=== PATIENT | female | born 1995 | race Caucasian/White ===

== ENCOUNTER 2021-08-19 13:45 | Inpatient (IN) | payer OTHER, SELFPAY ==
[2021-08-19] VITALS (124 sets, daily range): BP systolic 99–140; BP diastolic 46–96; PULSE 65–236; RESP 16–18; TEMP 36.4–36.8; O2SAT 95–100; BMI 31.4
--- NOTE | 2021-08-19 14:34 | PM.IMHP ---
H&P: HPI History of Present Illness Date/Time: 08/19/21 14:34 Chief Complaint: Intrauterine at term Narrative: 26 yo G1 at 39w2d who presents for elective IOL. Her has been uncomplicated thus far. She denies any regular contractions, vaginal bleeding or leakage of fluid. She Review of Systems Cardiovascular: Cardiovascular: Denies chest pain, Denies leg edema, Denies palpitations, Denies dyspnea and Denies dyspnea on exertion Respiratory: Respiratory: Denies cough, Denies dyspnea and Denies dyspnea on exertion Gastrointestinal: Gastrointestinal: Denies abdominal pain, Denies constipation, Denies diarrhea, Denies nausea and Denies vomiting Genitourinary: Genitourinary: Denies hematuria, Denies urinary frequency, Denies dysuria, Denies pelvic pain, Denies urinary incontinence and Denies vaginal discharge Neurologic: Reports system reviewed and no additional complaints, except as documented Psychiatric: Psychiatric: Reports no additional psychiatric complaints Endocrine: Endocrine: Denies palpitations [facility] Family History Family History (Updated 07/26/21 @ 14:42 by Jillian Roger RN) Mother Hypertension Migraines Father Atrial fibrillation Hypothyroidism Social History Social History Substance use: never Spiritual care concerns: No Meds Home Medications and Allergies Home Medications Medication Instructions Recorded Confirmed Type PNV cmb#95-ferrous fumarate-FA 1 tablet PO DAILY 07/26/21 08/19/21 History [] albuterol (refill) 90 mcg INHALATION Q6H PRN 07/26/21 08/19/21 History Allergies Allergy/AdvReac Type Severity Reaction Status Date / Time No Known Allergies Allergy Verified 07/26/21 14:36 Vital Signs Vital Signs - 24 hr 08/19/21 14:24 08/19/21 14:31 Pulse Rate 85 87 Blood Pressure 126/85 134/89 Exam Const: General: no acute distress Eyes: EOM: EOMs intact bilaterally Neck: Neck: supple Thyroid: thyroid normal Chest: Breast/axilla inspection: normal inspection of the breasts Breast/axilla palpation: normal palpation of the breasts, normal palpation of the axillae and no axillary lymphadenopathy Resp: Effort & Inspection: normal respiratory effort Auscultation: clear to auscultation bilaterally Cardio: Rate: regular rate Rhythm: regular rhythm GI: Inspection: non-distended and other (Gravid) GI Palp: Yes Soft to palpation, No Tenderness to palpation present (GI) and No Guarding due to palpation present (GI) Auscultation: normal bowel sounds : Speculum Exam - Vagina: No vaginal bleeding OB/external & speculum: external exam normal; No vaginal bleeding Skin: General skin exam: normal color and no rashes or lesions noted Neuro: Cognition (Neuro): normal cognition Speech: normal speech Extrem: General: normal to inspection Psych: Mental Status: mental status grossly normal Affect: normal affect Assessment and Plan Assessment and plan (1) Supervision of high risk , unspecified, third trimester: Code(s): O09.93 - Supervision of high risk , unspecified, third trimester Status: Acute Assessment and Plan: 26 yo G1 at 39w2d admit to L&d routine admission orders labs wnl Rh+ GBS +, will start abx in labor FHT cat 1 cvx /-2 plan for cervical gallego bulb and pitocin IOL continuous EFM (2) Asthma during : Code(s): O99.519 - Diseases of the respiratory system complicating , unspecified trimester; J45.909 - Unspecified asthma, uncomplicated Status: Acute Assessment and Plan: stable (3) COVID-19 affecting in first trimester: Code(s): O98.511 - Other viral diseases complicating , first trimester; U07.1 - COVID-19 Status: Acute Assessment and Plan: +COVID on 02/22/21
[2021-08-19 14:36] LABS: Basophils Percent Auto 0.2 % (0.2-1.2); Eosinophils Absolute Auto 0.1 K/mm3 (0-0.3); Eosinophils Percent Auto 0.5 % (0-4.4); Hematocrit 38.7 % (37.0-47.0); Hemoglobin 13.1 g/dL (12.0-15.0); Immature Granulocyte Absolute 0.08 K/mm3 (0.00-0.031); Immature Granulocyte Percent A 0.6 % (0-0.5); Lymphocytes Absolute Auto 1.62 K/mm3 (0.9-3.2); Lymphocytes Percent Auto 12.3 % (18.3-44.2); Mean Corpuscular HGB Conc 33.9 g/dl (32-36); Mean Corpuscular Hemoglobin 31.8 pg (26-34); Mean Corpuscular Volume 93.9 fl (80-100); Mean Platelet Volume 11.5 fl (7.4-10.4); Monocytes Absolute Auto 0.7 K/mm3 (0.1-0.6); Monocytes Percent Auto 5.6 % (2.6-8.5); Neutrophils Absolute Auto 10.6 K/mm3 (1.3-6.7); Neutrophils Percent Auto 80.8 % (45.5-73.1); Platelet Count Result 180 k/mm3 (150-375); Red Blood Count 4.12 M/mm3 (4.2-5.4); Red Cell Distribution Width 12.9 % (11.5-14.5); White Blood Count 13.2 K/mm3 (4.5-10.0)
[2021-08-19] MEDS: LACTATED RINGERS 1,000 ML 125 ML IV CONT (14:36)
[2021-08-19] MEDS: AMPICILLIN 2 GM/NS 100 ML 2 GM/100 ML BAG IVPB (14:38)
[2021-08-19] MEDS: OXYTOCIN 30 UNITS/NS 500 ML 30 UNITS/500 ML BAG IV CONT (14:42)
--- NOTE | 2021-08-19 15:42 | LDADM ---
This patient, Petra Tam, was admitted to Labor/Delivery/Recovery 106 on 08/19/21 at 13:45. Plans for labor, pain management and were discussed with patient. Patient/family oriented to hospital policies and general routines including ID bracelet, bed and alarms, visiting hours, pain management, procedures, bathroom and other care routines, personal items, smoking policy, room service/diet and guest tray routines, infant security routines, and visiting hours. Patient/Family are encouraged to report perceived risks to care and to ask questions if they do not understand what they are told or what they should do. See OBIX for further documentation.
[2021-08-19] MEDS: LACTATED RINGERS 1,000 ML 999 ML IV CONT (16:50)
--- NOTE | 2021-08-19 17:08 | WPDANESEPPF ---
Anes - Initial Pre Proc Eval Procedure: labor epidural Date/Time: 08/19/21 17:08 Surgeon: Jet Rivas MD Pre Op Diagnosis: labor pain Pre Op Diagnosis: Induction of Labor Patient Data Age: 26 Gender: F Height: 1.65 m Weight: 85.5 kg Last Vital Signs Temp 36.4 C L 08/19/21 16:28 Pulse 86 08/19/21 17:06 BP 133/82 08/19/21 17:06 Pulse Ox 100 08/19/21 17:06 Allergies Allergy/AdvReac Type Severity Reaction Status Date / Time No Known Allergies Allergy Verified 07/26/21 14:36 Home Medications Medication Instructions Recorded Confirmed Type PNV cmb#95-ferrous fumarate-FA 1 tablet PO DAILY 07/26/21 08/19/21 History [] albuterol (refill) 90 mcg INHALATION Q6H PRN 07/26/21 08/19/21 History Laboratory Tests 08/19/21 08/19/21 08/19/21 14:22 14:22 14:22 WBC 13.2 K/mm3 H K/mm3 (4.5-10.0) RBC 4.12 M/mm3 L M/mm3 (4.2-5.4) Hgb 13.1 g/dL g/dL (12.0-15.0) Hct 38.7 % % (37.0-47.0) MCV 93.9 fl fl (80-100) MCH 31.8 pg pg (26-34) MCHC 33.9 g/dl g/dl (32-36) RDW 12.9 % % (11.5-14.5) Plt Count 180 k/mm3 k/mm3 (150-375) MPV 11.5 fl H fl (7.4-10.4) Immature Gran % (Auto) 0.6 % H % (0-0.5) Neut % (Auto) 80.8 % H % (45.5-73.1) Lymph % (Auto) 12.3 % L % (18.3-44.2) [place] % (Auto) 5.6 % % (2.6-8.5) Eos % (Auto) 0.5 % % (0-4.4) Baso % (Auto) 0.2 % % (0.2-1.2) Lymph # (Auto) 1.62 K/mm3 K/mm3 (0.9-3.2) [place] # (Auto) 0.7 K/mm3 H K/mm3 (0.1-0.6) Eos # (Auto) 0.1 K/mm3 K/mm3 (0-0.3) Baso # (Auto) 0.0 K/mm3 K/mm3 (0.0-0.1) Abs Immat Gran (auto) 0.08 K/mm3 H K/mm3 (0.00-0.031) Absolute Neuts (auto) 10.6 K/mm3 H K/mm3 (1.3-6.7) Absolute Nucleated RBC 0.0 K/mm3 K/mm3 (0.0-0.012) Nucleated RBC % 0.0 % % (0.0-0.2) RPR Pending Blood Type B Positive Antibody Screen Negative Patient hx anesthesia problems: none Family hx anesthesia problems: none Results Review: All pre-operative results and documents have been reviewed as part of the pre-operative evaluation. [facility] Family History Family History (Updated 07/26/21 @ 14:42 by Jillian Roger RN) Mother Hypertension Migraines Father Atrial fibrillation Hypothyroidism Social History Social History Smoking status: Never smoker Second hand tobacco smoke exposure: No Substance use: never Spiritual care concerns: No Anes - Eval Final PreProcedure Day of Procedure 08/19/21 17:08 Patient weight: obese ASA classification: II Anesthesia type and monitoring: regional epidural and standard monitoring Results Review: All pre-operative results and documents have been reviewed as part of the pre-operative evaluation. Informed Consent: The patient's anesthetic plan and its attendant risks and benefits were discussed with the patient/family/POA. Questions were solicited and answers provided to the satisfaction of the patient/family/POA.
--- NOTE | 2021-08-19 17:51 | PM.OBPNLAB ---
Pain Control Date/time seen: 08/19/21 17:51 Pain control: epidural Pelvic Exam Dilation (cm): 5 Effacement (%): 100 station: -1 Amniotic membrane status: Intact Comments: AROM for clear fluid Contractions Monitor mode: External Status status: Category l Assessment and Plan Assessment: induction ongoing Plan: continuous present management
[2021-08-19] MEDS: AMPICILLIN 1 GM/NS 50 ML 1 GM/50 ML BAG IVPB ×2 (18:46→22:35)
[2021-08-20] VITALS (16 sets, daily range): BP systolic 102–153; BP diastolic 66–95; PULSE 68–107; RESP 16–20; TEMP 36.5–37.2; O2SAT 98–100
--- NOTE | 2021-08-20 01:09 | PM.OBPRVD ---
OB - Delivery Note Procedure Procedure: Patient pushed for a spontaneous vaginal delivery. The fetus was delivered atraumatically and placed on the maternal abdomen. The cord was clamped and cut after 1 minute of life. The cord was double clamped and cut and a segment of cord was collected for cord gases. Cord blood was collected for blood type and Coomb's testing. The placenta delivered spontaneously and was noted to be intact. The perineum was inspected and there was a 2nd degree perineal and right labial laceration. The laceration was repaired with 3-0 vicryl in the usual fashion. The uterus was firm and good hemostasis was noted. The patient and fetus were stable in the delivery room. Induction method: Per Pitocin Protocol Delivery augmentation: Rupture of Membranes Delivery monitor: External FHT Route of delivery: Episiotomy description: None Laceration Description: Perineal - 2nd Degree and Labial Delivery repair: vicryl Specimen: No Quantitative Blood Loss (ml): 250 Anesthesia type: Epidural Disposition: Floor () Complications: No immediate complications [place] Baby Date of : 08/20/21 Time of : 00:46 Weeks of gestation at delivery: 39 gender: Female Weight (pounds): 6 Weight (ounces): 13 presentation: vertex position: Left Occiput Anterior Placenta delivery description: Spontaneous Cord Vessel Description: 3 Vessels score one minute: 9 score five minutes: 9
[2021-08-20] MEDS: OXYTOCIN 30 UNITS/NS 500 ML 30 UNITS/500 ML BAG 125 UNITS IV CONT (01:30)
[2021-08-20] MEDS: ACETAMINOPHEN 325 MG TABLET 650 MG PO ×3 (02:55→17:59)
[2021-08-20] MEDS: IBUPROFEN 600 MG TABLET PO ×3 (02:56→18:00)
[2021-08-20] MEDS: WITCH HAZEL 40 PADS 1 PAD TOPICAL ×2 (02:57→17:59)
[2021-08-20] MEDS: BENZOCAINE 20% AER SPR (*SP) 56 GM CAN 1 SPRAY TOPICAL ×2 (02:57→17:59)
--- NOTE | 2021-08-20 03:44 | PC.NURSE ---
Patient transferred to post room #284 via wheelchair. Support person, Aakash, present. Oriented to unit, room, information board, rooming in, admission packet and security measures. Patient verbalizes understanding.
[2021-08-20 08:00] LABS: Rapid Plasma Reagin Non-Reactive (NonReactive)
[2021-08-20] MEDS: DOCUSATE SODIUM 100 MG CAPSULE PO ×2 (08:57→18:00)
[2021-08-20] MEDS: MULTIVIT/MIN/PREN/FOL AC/IRON TABLET 1 TAB PO (08:58)
--- NOTE | 2021-08-20 11:26 | PC.NURSE ---
1045 - Introductions were made, then consulted with patient to assess needs related to . Mother led the conversation with her experience feeding her infant so far. Mother works well with her with encouragement and education. Encouraged understanding of the benefits of skin to skin (unwrapping and placing vertically on her chest), responsive feeding and how to watch for early feeding signs, frequency of feeding on demand about every 8-12 times in 24 hours (every 2-3 hours), milk production, duration of feeding, signs of adequate intake/output and how to record on the feeding sheet. Reviewed asymmetrical latch (off-center), and leading with the chin with a big open side gape. Nipple care reviewed with optimal latch and good positioning. Resources used to facilitate learning were used with the visual handouts/mom and baby guide. Mother voiced understanding of responsive feedings, stimulating with skin to skin, hand expressed colostrum, touch, talking to to encourage if it has been 2 -3 hours since the start of the last , to call if does not latch or there is discomfort with . is skin to skin with mother and parents voiced calling for latch assistance when feeding cues are visualized. Reported to the primary RN.
--- NOTE | 2021-08-20 11:54 | P.PNOB_ITS ---
OB - PN: Subj Subjective Date/time seen: 08/20/21 11:54 Patient comments: no complaints, pain well controlled and tolerating diet [place] feeding status: exclusively breast feeding Narrative: patient doing well this AM. No complaints. Pain is well controlled. She reports minimal bleeding. She is ambulating and voiding without difficulty. She is tolerating PO. She denies N/V, fever, chills. OB - PN: Obj Data Labs CBC & Chem 7: 08/19/21 14:22 Labs: Laboratory Results - last 24 hr 08/19/21 08/19/21 08/19/21 14:22 14:22 14:22 WBC 13.2 H RBC 4.12 L Hgb 13.1 Hct 38.7 MCV 93.9 MCH 31.8 MCHC 33.9 RDW 12.9 Plt Count 180 MPV 11.5 H Immature Gran % (Auto) 0.6 H Neut % (Auto) 80.8 H Lymph % (Auto) 12.3 L [place] % (Auto) 5.6 Eos % (Auto) 0.5 Baso % (Auto) 0.2 Lymph # (Auto) 1.62 [place] # (Auto) 0.7 H Eos # (Auto) 0.1 Baso # (Auto) 0.0 Abs Immat Gran (auto) 0.08 H Absolute Neuts (auto) 10.6 H Absolute Nucleated RBC 0.0 Nucleated RBC % 0.0 RPR Non-reactive Blood Type B Positive Antibody Screen Negative OB - PN A/P Plan day: 1 Plan: routine care Comments: patient doing well H/H pending continue routine care Time Spent With Patient Time: Total time spent is greater than 50% in coordination of care (as documented) at patient's floor/unit and/or counseling patient: Time with patient: less than 15 minutes Review of Systems Review of Systems: All systems reviewed & are unremarkable except as noted in HPI and below Exam Const: General: comfortable and no acute distress Resp: Effort & Inspection: normal respiratory effort Cardio: Rate: regular rate GI: GI Palp: Yes Soft to palpation and No Tenderness to palpation present (GI) Auscultation: normal bowel sounds Other: fundus firm and below umbilicus. Psych: Affect: normal affect
--- NOTE | 2021-08-20 11:55 | P.DS_ITS ---
DS: Admitting Diagnosis Discharge Date 08/21/21 Admitting Diagnosis intrauterine at term OB - DS: Summary OB Procedures : None OB Procedures Intrapartum: Spontaneous Vag Delivery OB Procedures: : None Status at Discharge Functional status at discharge: independent ambulation Overall status at discharge: patient is back to baseline Time Spent with Patient Time attestation: Total time spent providing and/or coordinating discharge services: Time spent: Less than 30 minutes Exam Const: General: comfortable and no acute distress Resp: Effort & Inspection: normal respiratory effort Auscultation: clear to auscultation bilaterally Cardio: Rate: regular rate GI: GI Palp: Yes Soft to palpation Auscultation: normal bowel sounds Other: Fundus firm below umbilicus Psych: Appearance: grossly normal Mental Status: mental status grossly normal Affect: normal affect DS: Data Data Completed and Pending Labs on day of discharge: Labs from last 24 hours 08/19/21 08/19/21 08/19/21 14:22 14:22 14:22 WBC 13.2 H RBC 4.12 L Hgb 13.1 Hct 38.7 MCV 93.9 MCH 31.8 MCHC 33.9 RDW 12.9 Plt Count 180 MPV 11.5 H Immature Gran % (Auto) 0.6 H Neut % (Auto) 80.8 H Lymph % (Auto) 12.3 L [place] % (Auto) 5.6 Eos % (Auto) 0.5 Baso % (Auto) 0.2 Lymph # (Auto) 1.62 [place] # (Auto) 0.7 H Eos # (Auto) 0.1 Baso # (Auto) 0.0 Abs Immat Gran (auto) 0.08 H Absolute Neuts (auto) 10.6 H Absolute Nucleated RBC 0.0 Nucleated RBC % 0.0 RPR Non-reactive Blood Type B Positive Antibody Screen Negative Discharge Plan Discharge Discharging Clinician: Jet Rivas Anticipated Discharge Date/Time: 08/21/21 08:00 Patient Disposition: Home, Self-Care Activity: as tolerated and pelvic rest Diet: regular Patient Instructions: Antibiotic Form, Vaginal Delivery (DC) Stand Alone Forms: General Discharge Information Follow-up/Referrals: Jet Rivas MD [Physician] - 4 Weeks Discharge Medications: New polysaccharide iron complex 150 mg iron Capsule 150 mg PO BIDWM Qty: 60 RF: 0 ibuprofen 600 mg Tablet 600 mg PO Q6H PRN (Reason: Cramping) Qty: 30 RF: 0 acetaminophen [Mapap (acetaminophen)] 325 mg Tablet 650 mg PO Q6H PRN (Reason: Mild Pain (1-3) Or Headache) Qty: 30 RF: 0 Continued PNV cmb#95-ferrous fumarate-FA [] 28 mg iron- 800 mcg Tablet 1 tablet PO DAILY RF: 0 albuterol (refill) 90 mcg/actuation Aerosol 90 mcg INHALATION Q6H PRN (Reason: Adequate Ventilation) RF: 0 Date of admission: 08/19/21 13:45 Primary Care Provider: PHYSICIAN NOT ON STAFF,NONSTAFF Admitting Provider: Jet Rivas Attending physician on admission: Jet Rivas Condition: Stable
--- NOTE | 2021-08-20 14:12 | PC.NURSE ---
[id number] Consulted with patient to assess needs related to . Mother led conversation with her experience with feeding baby so far. Mother works well with her infant skin to skin but not stimulated to breastfeed. Reviewed working with , breast, nipples and how to protect the nipples with an optimal deep latch, good positioning, and good hand washing. Encouraged understanding the benefits of skin to skin, responding to feeding cues, frequencies of feeding 8-12 times in 24 hours (approximately 2-3 hours), duration of feedings, milk production, intake/output feeding sheet and signs of adequate intake encouraging swallowing at the breast. Reviewed positioning and alignment, supporting breast, off-centered (asymmetrical latch) and leading with the chin with big open wide gape. Infant latched optimally to the right breast in football position after unsuccessful attempts to the left breast practicing with and without a nipple shield and in the cross cradle position. Education given to mother of how to visualize suck/swallow ratios and drinking at the breast. was able to maintain latch without discomfort to mother for a few minutes but attempted to reposition to the nipple. detached and demonstrated a gag reflex. Nipple care reviewed with optimal latch and good positioning, and have clean hands when touching the nipple/breast as needed. Mother demonstrated hand expression and would finger feed colostrum to 's mouth to preserve breast focus and protect the milk supply. Resources used to facilitate learning were used from the mom and baby guide. Mother voiced understanding of the education shared, calling for assistance if the infant does not latch or if there is discomfort with . Reported to the primary RN.
[2021-08-21] MEDS: IBUPROFEN 600 MG TABLET PO ×2 (04:05→12:27)
[2021-08-21] MEDS: ACETAMINOPHEN 325 MG TABLET 650 MG PO ×2 (04:05→12:27)
[2021-08-21 05:08] LABS: Hematocrit 31.8 % (37.0-47.0); Hemoglobin 10.8 g/dL (12.0-15.0)
[2021-08-21] MEDS: MULTIVIT/MIN/PREN/FOL AC/IRON TABLET 1 TAB PO (07:50)
[2021-08-21] MEDS: DOCUSATE SODIUM 100 MG CAPSULE PO (07:52)
--- NOTE | 2021-08-21 07:52 | WPDANLDPN2 ---
Anes-Prog Note L&D Date/Time: 08/21/21 07:52 Comfortable throughout: labor and delivery Neuraxial method: epidural Epidural/Spinal procedure site: clean & non-tender Neuro status: Neuro function grossly intact. Cardiovascular status: normal Respiratory status: normal Airway patency: baseline Mental status: baseline Post-Op hydration status: normal Vital Signs: Last Vital Signs Temp 36.5 C 08/20/21 23:30 Pulse 75 08/20/21 23:30 Resp 18 08/20/21 23:30 BP 116/73 08/20/21 23:30 Pulse Ox 100 08/20/21 20:45 Pain score (VAS): 3 I/O: Intake & Output 08/20/21 08/20/21 08/21/21 15:59 23:59 07:59 Intake Total 240 Balance 240 Post-procedural complaints: none Patient feedback: Patient satisfied with anesthetic care.
[2021-08-21 08:00] VITALS: BP 114/70; PULSE 68; RESP 20; TEMP 36.7
--- NOTE | 2021-08-21 08:00 | PC.NURSE ---
Patient viewed the discharge video Mother & Baby Care, The First Two Weeks . Patient was given the opportunity and encouraged to ask questions. Patient verbalized understanding of information shared and has been given the mother/baby guide for home reference.
--- NOTE | 2021-08-21 08:45 | PC.NURSE ---
Self care and infant care discharge instructions given including follow up visit date and time. Mother verbalized understanding,. No questions or concerns voiced. Very pleasant and cooperative.
--- NOTE | 2021-08-21 08:47 | PC.NURSE ---
[id number] - Mother led the conversation with her experience and plan to feed her so far and her ability to independently latch optimally without discomfort. Reminded parents to use good handwashing technique to prevent infection. Mother is feeding appropriately for growth of infant and understands stimulating to eat if needed. Infant has had appropriate feedings in the last 24 hours meets the outcomes for weight, output and jaundice at this time. Mother states she is confident to continue effectively her infant at home or when to call for assistance, denies any additional assistance or education at this time and has great resources at home with a mother, [id number] and Katharina Tripathi. Reinforced understanding of milk production, transition of milk, signs of adequate intake, prevention/relief of engorgement, responsive after visualizing feeding cues, the different methods of stimulating to breastfeed 2-3 hours after the start of the last feeding, community resources, and when to call a provider using the resource of the mom and baby guide/[facility] website. Mother voiced understanding of the education shared. Reported to the primary RN.
[2021-08-21] MEDS: BENZOCAINE 20% AER SPR (*SP) 56 GM CAN 1 SPRAY TOPICAL (12:27)
[2021-08-21] MEDS: WITCH HAZEL 40 PADS 1 PAD TOPICAL (12:28)
[2021-08-22 11:21] VITALS: BP 126/79; PULSE 91; RESP 20; TEMP 36.9; O2SAT 100
== END 2021-08-21 13:12 | disposition home or self-care (01) | DRG 807 ==
LOC: ANHLDR 14:01 → ANHOB2 08-20 03:48
PROVIDERS: Admitting Provider Student in an Organized Health Care Education/Training Program; Visit Provider Student in an Organized Health Care Education/Training Program
DX: O99.824 Streptococcus B carrier state complicating childbirth (principal); Z37.0 Single live birth; Z3A.39 39 weeks gestation of pregnancy; O70.1 Second degree perineal laceration during delivery; O36.8330 Maternal care for abnormalities of the fetal heart rate or rhythm, third trimester, not applicable or unspecified; O99.52 Diseases of the respiratory system complicating childbirth; J45.909 Unspecified asthma, uncomplicated; Z86.16 Personal history of COVID-19
CPT/HCPCS: 36415; 85014; 85018; 85025; 86592; 86850; 86900; 86901; A9270; J0290; J2590; J2795; J7120

== ENCOUNTER 2024-02-14 12:24 | Inpatient (IN) | payer BC, SELFPAY ==
[2024-02-14] VITALS (140 sets, daily range): BP systolic 90–132; BP diastolic 56–100; PULSE 62–214; RESP 16; TEMP 36.6–37.3; O2SAT 97–100; BMI 28.0
[2024-02-14] MEDS: LACTATED RINGERS 1,000 ML 125 ML IV CONT ×2 (15:33→17:01)
[2024-02-14] MEDS: AMPICILLIN 2 GM/NS 100 ML 2 GM/100 ML BAG IVPB (15:36)
--- NOTE | 2024-02-14 15:36 | PM.IMHP ---
H&P: HPI History of Present Illness Date/Time: 02/14/24 15:36 Chief Complaint: labor Narrative: 28-year-old 2 para 1 whose last menstrual period was 05/21/2023, EDC is 02/24/2024, confirmed by 10 week ultrasound presents at 38 and half weeks gestation in active labor. She came in at 3cm she is presently 4-5. Her has been uncomplicated but she is positive for group B strep and is being treated PMF Family History Family History Mother Migraines Hypertension Father Atrial fibrillation Hypothyroidism Grandparent Acute myocardial infarction Grandparent Aneurysm Social History Social History Smoking status: Never smoker Second hand tobacco smoke exposure: No Substance use: never Spiritual care concerns: No Meds Home Medications and Allergies Home Medications Medication Instructions Recorded Confirmed Type albuterol (refill) 90 90 mcg inhalation Q6H PRN Adequate 07/26/21 02/05/24 History mcg/actuation aerosol inhaler Ventilation vit no.95-ferrous 1 tablet PO DAILY 07/26/21 02/05/24 History fumarate 28 mg-folic acid 800 mcg tablet () Allergies Allergy/AdvReac Type Severity Reaction Status Date / Time No Known Allergies Allergy Verified 02/05/24 14:40 Vital Signs Vital Signs - 24 hr 02/14/24 15:15 Pulse Rate 72 Blood Pressure 132/82 Exam Const: General: cooperative, healthy appearing and comfortable Nutritional Appearance: average body habitus Orientation/consciousness: oriented to person and oriented to place Resp: Effort & Inspection: normal respiratory effort Cardio: Rate: regular rate Rhythm: regular rhythm Heart sounds: S1 normal heart sound present GI: Inspection: normal to inspection Assessment and Plan Assessment and plan (1) Term : Code(s): Z34.90 - Encounter for supervision of normal , unspecified, unspecified trimester Status: Acute (2) Positive testing for group B Streptococcus: Code(s): B95.1 - Streptococcus, group B, as the cause of diseases classified elsewhere Status: Acute Assessment and Plan: ntaneous vaginal delivery is expected. Group B strep prophylaxis will be undertaken. She is an epidural candidate
[2024-02-14 15:38] LABS: Basophils Percent Auto 0.3 % (0.2-1.2); Eosinophils Absolute Auto 0.1 K/mm3 (0-0.3); Eosinophils Percent Auto 0.7 % (0-4.4); Hematocrit 42.8 % (37.0-47.0); Hemoglobin 14.8 g/dL (12.0-15.0); Immature Granulocyte Absolute 0.08 K/mm3 (0.00-0.031); Immature Granulocyte Percent A 0.6 % (0-0.5); Lymphocytes Absolute Auto 2.06 K/mm3 (0.9-3.2); Lymphocytes Percent Auto 14.9 % (18.3-44.2); Mean Corpuscular HGB Conc 34.6 g/dl (32-36); Mean Corpuscular Volume 92.4 fl (80-100); Mean Platelet Volume 11.7 fl (7.4-10.4); Monocytes Absolute Auto 0.7 K/mm3 (0.1-0.6); Neutrophils Absolute Auto 10.8 K/mm3 (1.3-6.7); Neutrophils Percent Auto 78.5 % (45.5-73.1); Platelet Count Result 171 k/mm3 (150-375); Red Blood Count 4.63 M/mm3 (4.2-5.4); Red Cell Distribution Width 12.7 % (11.5-14.5); White Blood Count 13.8 K/mm3 (4.5-10.0)
--- NOTE | 2024-02-14 15:43 | LDADM ---
This patient, Petra Tam, was admitted to Labor/Delivery/Recovery 103 on 02/14/24 at 12:24. Plans for labor, pain management and were discussed with patient. Patient/family oriented to hospital policies and general routines including ID bracelet, bed and alarms, visiting hours, pain management, procedures, bathroom and other care routines, personal items, smoking policy, room service/diet and guest tray routines, infant security routines, and visiting hours. Patient/Family are encouraged to report perceived risks to care and to ask questions if they do not understand what they are told or what they should do. See OBIX for further documentation.
[2024-02-14 16:28] LABS: HIV 1/2 Ab P24 Ag Result Negative (Negative)
[2024-02-14 16:49] LABS: Rapid Plasma Reagin Non-Reactive (NonReactive)
[2024-02-14] MEDS: ONDANSETRON INJ 4 MG/2 ML VIAL IV PUSH (18:54)
[2024-02-14] MEDS: AMPICILLIN 1 GM/NS 50 ML 1 GM/50 ML BAG IVPB (19:28)
--- NOTE | 2024-02-14 20:11 | PM.OBPNLAB ---
Pain Control Date/time seen: 02/14/24 20:11 Pain control: tolerating well and epidural Pelvic Exam Dilation (cm): 7 station: -1 Amniotic membrane status: Leaking
--- NOTE | 2024-02-14 21:13 | PM.OBPRVD ---
OB - Vaginal Delivery Note Procedure Delivery date: 02/14/24 Events: Positive Group B Strep (GBS) Induction method: None Delivery augmentation: Rupture of Membranes Delivery monitor: External FHT and External Uterine Route of delivery: Episiotomy description: None Laceration Description: None Specimen: No Quantitative Blood Loss (ml): 61 Anesthesia type: Epidural Disposition: Floor Complications: No immediate complications Narrative: Patient was admitted in active labor 38 half weeks gestation. She received 2 doses of ampicillin prophylactically for group B strep. She was complete she pushed delivered head spontaneously in the MERI position. Nuchal cord checked noted be loose x1 relieved around the occiput. Anterior posterior shoulder delivered spontaneously. Cord clamped x2 and cut passed off the table given Apgars of 9 and 9 at 1 and 5minutes respectively. The placenta delivered intact spontaneously. Twenty of Pitocin placed IV to help firm the uterus. After inspecting all sidewalls no tears or lacerations were noted. QBL was 61cc. All sponge needle and instrument counts were correct Baby Date of : 02/14/24 Time of : 21:05 Gestational Age by Date: 38 Infant gender: Male presentation: vertex position: Right Occiput Anterior Placenta delivery description: Spontaneous Cord Vessel Description: 3 Vessels, Nuchal Cord, Loose and Reduced score one minute: 9 score five minutes: 9 Narrative: ampicillin x2 for group B strep
[2024-02-14] MEDS: OXYTOCIN 30 UNITS/NS 500 ML 30 UNITS/500 ML BAG 999 UNITS IV CONT (21:15)
--- NOTE | 2024-02-14 21:16 | P.DS_ITS ---
DS: Admitting Diagnosis Discharge Date Admitting Diagnosis term /positive group B strep DS: Discharge Diagnosis Discharge Diagnosis (1) Positive testing for group B Streptococcus: Code(s): B95.1 - Streptococcus, group B, as the cause of diseases classified elsewhere Status: Acute (2) Term : Code(s): Z34.90 - Encounter for supervision of normal , unspecified, unspecified trimester Status: Acute DS: Summary Hospital Course Reason for hospitalization: patient was admitted in active labor on 02/13 she underwent spontaneous vaginal delivery with epidural anesthesia and group B strep prophylaxis Hospital Course: patient's hospital course unremarkable. She remained afebrile. She was up, voidingWithout difficulty, eating regular diet, ambulating, and generally without complaints. Time Spent with Patient Time attestation: Total time spent providing and/or coordinating discharge services: Exam Const: General: cooperative, healthy appearing and comfortable Nutritional Appearance: average body habitus Orientation/consciousness: oriented to person, oriented to place and oriented to time HENMT: Head: normal to inspection Resp: Effort & Inspection: normal respiratory effort Cardio: Rate: regular rate Rhythm: regular rhythm Heart sounds: S1 normal heart sound present and S2 normal heart sound present GI: Inspection: normal to inspection DS: Data Data Completed and Pending Labs on day of discharge: Labs from last 24 hours 02/14/24 15:31 WBC 13.8 H RBC 4.63 Hgb 14.8 D Hct 42.8 MCV 92.4 MCH 32.0 MCHC 34.6 RDW 12.7 Plt Count 171 MPV 11.7 H Immature Gran % (Auto) 0.6 H Neut % (Auto) 78.5 H Lymph % (Auto) 14.9 L [place] % (Auto) 5.0 Eos % (Auto) 0.7 Baso % (Auto) 0.3 Lymph # (Auto) 2.06 [place] # (Auto) 0.7 H Eos # (Auto) 0.1 Baso # (Auto) 0.0 Abs Immat Gran (auto) 0.08 H Absolute Neuts (auto) 10.8 H Absolute Nucleated RBC 0.000 Nucleated RBC % 0.0 RPR Non-reactive HIV 1&2 Ab/P24 Ag 4thGn Negative Blood Type B Positive Antibody Screen Negative Discharge Plan Discharge Attending physician on discharge: Yoel Santoyo Discharging Clinician: Yoel Santoyo Patient Disposition: Home, Self-Care Activity: may shower, no straining and pelvic rest Diet: heart healthy Wound Care Instructions: follow printed instructions Patient Instructions: Antibiotic Form Stand Alone Forms: General Discharge Information Follow-up/Referrals: Yoel Santoyo MD [Physician] - Discharge Medications: Continued PNV cmb#95-ferrous fumarate-FA [] 28 mg iron- 800 mcg Tablet 1 tablet PO DAILY albuterol (refill) 90 mcg/actuation Aerosol 90 mcg INHALATION Q6H PRN (Reason: Adequate Ventilation) Date of admission: 02/14/24 12:24 Primary Care Provider: PHYSICIAN NOT ON STAFF,NONSTAFF Admitting Provider: Yoel Santoyo Attending physician on admission: Yoel Santoyo Condition: Stable
[2024-02-14] MEDS: OXYTOCIN 30 UNITS/NS 500 ML 30 UNITS/500 ML BAG 125 UNITS IV CONT (21:40)
[2024-02-14] MEDS: ACETAMINOPHEN 325 MG TABLET 650 MG PO (22:21)
[2024-02-15] VITALS (8 sets, daily range): BP systolic 95–108; BP diastolic 55–73; PULSE 60–87; RESP 16–18; TEMP 36.4–36.9; O2SAT 98–99
[2024-02-15] MEDS: WITCH HAZEL 40 PADS 1 PAD TOPICAL (00:26)
[2024-02-15] MEDS: BENZOCAINE 20% AER SPR (*SP) 56 GM CAN 1 SPRAY TOPICAL (00:26)
--- NOTE | 2024-02-15 00:33 | OBPPTRN ---
Patient transferred to post room #286 via w/c. Support person present. Oriented to unit, room, information board, rooming in, admission packet and security measures. Patient verbalizes understanding.
[2024-02-15] MEDS: IBUPROFEN 600 MG TABLET PO ×3 (01:00→17:05)
[2024-02-15] MEDS: ACETAMINOPHEN 325 MG TABLET 650 MG PO (04:45)
[2024-02-15 04:59] LABS: Hematocrit 32.9 % (37.0-47.0); Hemoglobin 11.4 g/dL (12.0-15.0)
--- NOTE | 2024-02-15 07:00 | PC.NURSE ---
Introductions were made, then consulted with patient to assess needs related to . Parents had just successfully woken and fed baby after a 5 hour sleepy period. Discussed with mother her?plans to feed?her and the?experience so far. Resources provided for inpatient and outpatient services with the feeding sheet, mom/baby guide and name written on the communication board. Mother voiced understanding of information and will call if there is a request for assistance. Reported to the Primary RN.
[2024-02-15] MEDS: MULTIVIT/MIN/PREN/FOL AC/IRON TABLET 1 TAB PO (07:58)
--- NOTE | 2024-02-15 15:26 | WPDANLDPN2 ---
Anes-Prog Note L&D Date/Time: 02/15/24 15:26 Comfortable throughout: labor and delivery Neuraxial method: epidural Epidural/Spinal procedure site: clean & non-tender Neuro status: Neuro function grossly intact. Cardiovascular status: normal Respiratory status: normal Airway patency: baseline Mental status: baseline Post-Op hydration status: normal Vital Signs: Last Vital Signs Temp 36.9 C 02/15/24 12:10 Pulse 67 02/15/24 12:10 Resp 16 02/15/24 12:10 BP 108/73 02/15/24 12:10 Pulse Ox 99 02/15/24 12:10 O2 Del Method Room Air 02/15/24 00:50 Pain score (VAS): 3/10 I/O: Intake & Output 02/14/24 02/15/24 02/15/24 23:59 07:59 15:59 Intake Total 1000 Output Total 488 Balance 512 Post-procedural complaints: none Patient feedback: Patient satisfied with anesthetic care.
[2024-02-15] MEDS: DOCUSATE SODIUM 100 MG CAPSULE PO (17:05)
[2024-02-16] MEDS: ACETAMINOPHEN 325 MG TABLET 650 MG PO (01:20)
--- NOTE | 2024-02-16 06:28 | PM.OBPNVD ---
OB - PN: Subj Subjective Date/time seen: 02/16/24 06:28 Patient comments: no complaints and pain well controlled baby status: doing well and nursing well OB - PN: Obj Data Labs 02/15/24 04:41 OB - PN A/P Plan day: 2 Plan: routine care, discharge home and follow up 6 weeks Time Spent With Patient Time: Total time spent is greater than 50% in coordination of care (as documented) at patient's floor/unit and/or counseling patient: Time with patient: less than 15 minutes Exam Const: General: cooperative, healthy appearing and comfortable Nutritional Appearance: average body habitus Orientation/consciousness: oriented to person, oriented to place and oriented to time GI: Inspection: normal to inspection
[2024-02-16 07:35] VITALS: BP 101/61; PULSE 66; RESP 18; TEMP 36.7; O2SAT 97
[2024-02-16] MEDS: IBUPROFEN 600 MG TABLET PO (08:59)
[2024-02-16] MEDS: MULTIVIT/MIN/PREN/FOL AC/IRON TABLET 1 TAB PO (08:59)
[2024-02-16] MEDS: DOCUSATE SODIUM 100 MG CAPSULE PO (08:59)
--- NOTE | 2024-02-16 10:00 | PC.NURSE ---
Consulted with mother concerning needs and she shared her ability to independently latch infant optimally without pain. Mother is feeding appropriately for growth of and understands stimulating to eat if needed. Infant has had appropriate feedings in the last 24 hours meets the outcomes for weight, output, blood sugar and jaundice at this time. Reinforced understanding of milk production, transition of milk, signs of adequate intake, transition of stool, prevention/relief of engorgement, plugged ducts, mastitis, responsive , community resources, and when to call a provider using the resource of the feeding sheet along with the mom and baby guide and Common Issues handout. Mother voiced understanding of the information shared, is confident to continue effectively her infant at home, when to call for assistance, denies any additional assistance or education at this time. Reported to the Primary RN.
[2024-02-17 15:58] VITALS: BP 104/75; PULSE 66; RESP 18; TEMP 36.8; O2SAT 97
== END 2024-02-16 14:50 | disposition home or self-care (01) | DRG 807 ==
LOC: ANHLDR 21:19 → ANHOB2 02-15 00:35
PROVIDERS: Admitting Provider Obstetrics & Gynecology; Visit Provider Obstetrics & Gynecology
DX: O99.824 Streptococcus B carrier state complicating childbirth (principal); Z37.0 Single live birth; O69.81X0 Labor and delivery complicated by cord around neck, without compression, not applicable or unspecified; Z3A.38 38 weeks gestation of pregnancy
CPT/HCPCS: 36415; 85014; 85018; 85025; 86592; 86703; 86850; 86900; 86901; A9270; G0432; J0290; J2405; J2590; J2795; J7120

== ENCOUNTER 2024-08-02 17:15 | Outpatient (CLI) | payer BC, SELFPAY ==
--- NOTE | ~2024-08-02 | XR_ITS ---
Supine and lateral views of the abdomen Clinical history: IUD displacement Findings: Bowel gas pattern is nonspecific. No evidence for obstruction or free air. No abnormal mass lesion or calcification is seen. Osseous structures are intact. IUD is present in the left side of t he pelvis. Impression: IUD in the left side pelvis. Relationship relative to the uterus is unclear on plain radiography. Thi s could be in satisfactory position if the uterus is towards the left side of the pelvis, however reny rated/perforated IUD is not excluded based on this exam. Pelvic ultrasound advised to better assess t he relationship of the IUD to the endometrial cavity/uterus. Reviewed, dictated and finalized at location M. Impression: IUD in the left side pelvis. Relationship relative to the uterus is unclear on plain radiography. This could be in satisfactory position if the uterus is towa rds the left side of the pelvis, however migrated/perforated IUD is not exclude d based on this exam. Pelvic ultrasound advised to better assess the relationsh ip of the IUD to the endometrial cavity/uterus.
--- OUTSIDE RECORDS SUMMARY | 2024-08-02 17:40 | XMS_ITS | Clinical Summary ---
Author Organization [facility] Physician Office Building [address] [place] [id number] Care Team Providers Care X Ray Physician Name Role Phone Yrn Willingham MD Primary Care Provider [phone] Jet Rivas MD Unavailable [phone] Allergies No known active allergies Medications cetirizine (ZyrTEC) 10 mg tablet Active beclomethasone dipropionate (QVAR REDIHALER) 40 mcg/actuation inhaler Inhale 1 puff 2 (two) times a day Rinse mouth with water after use. Do not swallow. Use when in Yellow Zone 10.6 Inhaler 1 0 Active albuterol HFA (ProAir HFA) 90 mcg/actuation inhalerIndications :Mild persistent asthma without complication Inhale 2 puffs every 4 (four) hours as needed for wheezing or shortness of breath 8.5 g 11 2 Active ondansetron ODT (ZOFRAN-ODT) 4 mg disintegrating tablet Take 1 tablet (4 mg total) by mouth every 8 (eight) hours as needed for nausea or vomiting 20 tablet 1 3 Active EluRyng 0.12-0.015 mg/24 hr vaginal ring 3 Active Active Problems Problem Noted Date Diagnosed Date Well adult exam 11/07/2021 Assessment & Plan (12/23/2022 4:06 PM CDT): A(n) initial well visit to establish care has been performed today. Petra Tam is not up to date on screening tests. She is in need of Cholesterol screening and Cervical cancer screening. She is not up to date on needed preventative vaccinations; She is in need of Covid-19 (booster). We discussed healthy lifestyle habits, educational material has been given. Medications reviewed, changes documented as per the medical record and discussed with patient along with risks vs benefits. Return in 1 year Assessment & Plan (11/07/2021 10:05 AM CDT): A(n) initial well adult visit has been performed today. Petra Tam is not up to date on screening tests. She is in need of Cervical cancer screening- she sees her greenbelt. She is not up to date on needed preventative vaccinations; She is in need of Pneumonia (Prevnar-13 or Pneumovax-23) and Covid-19 (booster). Labs pending Nausea 10/28/2019 Assessment & Plan (10/28/2019 1:36 PM CDT): Discussed avoiding caffeine, limiting NSAIDS, and avoiding spicy foods that may trigger GERD symptoms. -Encouraged patient to prop head of bed at night with 4 x 4s. -morning nausea likely GERD. Will get UPT and labs today to rule out other causes. -Avoid eating 2 hours prior to bed. -Trial of H2 kate for 4 weeks reasonable given no warning signs of dysphagia, odynophagia, GI bleeding, weight loss, or regurgitation. -If persist greater than 4 weeks. Will consider referral to gastroenterology Overweight with body mass in dex (BMI) of 25 to 25.9 in adult 10/28/2019 Assessment & Plan (10/28/2019 1:36 PM CDT): -Body mass index is 25.63 kg/m . For a healthy weight should have BMI between 20-24.9 kg/m2. -Discussed with patient MyPlate dietary and exercise recommendations, 30 minutes moderate activity at least 5 days per week. (150 minutes total). -Discussed risk factors associated with obesity including risk for diabetes, hypertension, hyperlipidemia, and some types of cancer. Mild persistent asthma without complication 05/2018 Assessment & Plan (10/28/2019 1:35 PM CDT): Asthma is improving with treatment. The patient is experiencing no daytime asthma symptoms. She is experiencing no nighttime asthma symptoms. Discussed monitoring symptoms and use of quick-relief medications and contacting us early in the course of exacerbations. Warning signs of respiratory distress were reviewed with the patient. Continue albuterol p.r.n.. Recommended albuterol 20 minutes prior to exercise. Start QVAR during times of yellow zone. Reviewed what yellow zone means (times of viral URI, change in season, etc) Assessment & Plan (07/02/2018 11:12 AM CLINICAL EDUCATOR): Asthma is unchanged. The patient is experiencing no daytime asthma symptoms. She is experiencing no nighttime asthma symptoms. Discussed monitoring symptoms and use of quick-relief medications and contacting us early in the course of exacerbations. Warning signs of respiratory distress were reviewed with the patient. Continue QVAR 1 puff b.i.d.. When in yellow zone or at times a viral URI increase to 2 puffs b.i.d.. rinse mouth out after use. If seasonal allergies are increasing asthma symptoms would recommend montelukast 10 mg nightly Annual physical exam 07/02/2018 Assessment & Plan (10/28/2019 1:34 PM CDT): -Discussed recommendations for exercise at least 30 minutes moderate to vigorous exercise most days of the week. (minimum 150 minutes weekly) -Discussed MyPlate recommendations and increasing fruits and vegetables. -Cancer screening: cervical cancer screening- last pap 2019; monthly self breast exam encouaged. -Immunizations: yearly influenza vaccines -Continue routine dental and vision care. Assessment & Plan (07/02/2018 11:13 AM CLINICAL EDUCATOR): -Discussed recommendations for exercise at least 30 minutes moderate to vigorous exercise most days of the week. (minimum 150 minutes weekly) -Discussed MyPlate recommendations and increasing fruits and vegetables. -Cancer screening: cervical cancer screening- last pap 2017, due 2018; monthly self breast exam encouaged. -Immunizations: Will get Pneumovax today due to history of asthma, yearly influenza vaccines -Continue routine dental and vision care. -Labs ordered today: Screen for diabetes mellitus: CMP Screen for lipid disorders: Lipid profile Screen for venereal disease: declined Low grade squamous intraepit helial lesion on cytologic smear of cervix (LGSIL) 07/02/2018 Assessment & Plan (10/28/2019 1:34 PM CDT): Patient is status post colpo and LEEP in October 2018. She needs a follow-up Pap smear in December. She was given a contact for gynecology in [facility]. Assessment & Plan (07/02/2018 11:11 AM CLINICAL EDUCATOR): Will repeat pap this July 2018 with Director Family. Recommended keeping follow up. Resolved Problems Problem Noted Date Diagnosed Date Resolved Date Cough 07/25/2019 10/28/2019 SOB (shortness of breath) 07/25/2019 Advice given about COVID-19 virus infection 07/25/2019 10/28/2019 Immunizations Immunization Administration Dates Next Due DTaP 02/15/1998, 5,1993,05/25,1993 DTaP 5 Pertussis 02/15/1998, 5,1993,05/25,1993 HPV, Quadrivalent 08/14/2006,04/22/2006,02/05/20 06 HPV, Unspecified 08/14/2006,04/22/2006, 4 Hep B, Adolescent or Pediatric 1993,1992,1993 Hep B, Unspecified 1993,1993, 993 Hib (PRP-T) 1993,1993,1993 IPV 02/15/1998, 4,1993,03/22 Influenza, Quadrivalent, Spl it, Preservative Free, Intramuscular 01/09/2017 Influenza, Unspecified 12/23/2022(Deferr ed: Patient Refused),05/04/2021(Deferred: Patient Refused),05/04/2020(Deferred: Patient Refused),02/01/2018,02/01/2017, 015 MMR 03/09/2015, 5,02/15/1998,02/12 MMRV 02/15/1998 Meningococcal MCV4P (Menactra) 10/19/2007 PPD TEST 1993 Pfizer SARS-CoV-2 Monovalent Vaccination (12+ Yrs) PURPLE 05/14/2020,04/24/2020 Pneumococcal Polysaccharide PPV23 07/02/2018 Tdap 06/22/2021, 9,05/04/2014,11/21 Varicella 03/04/1996 Surgical History Surgery Date Site/Laterality Comments WISDOM TOOTH EXTRACTION 05/04/2010 - 05/03/2011 COLPOSCOPY 10/02/2018 - 10/31/2018 CERVICAL BIOPSY W/ LOOP ELEC TRODE EXCISION 10/02/2018 - 10/31/2018 Medical History Medical History Date Comments Mild persistent asthma without complication 2018 Low grade squamous intraepit helial lesion on cytologic smear of cervix (LGSIL) 07/02/2018 Family History Medical History Relation Name Comments Arthritis Father Osbaldo Atrial fibrillation Father Osbaldo Clotting disorder Father Osbaldo Early Father Osbaldo Hyperlipidemia Father Osbaldo Hypothyroidism Father Osbaldo Heart attack Maternal Grandfather Grandpa Berghahn Aneurysm Maternal Grandmother Pepper Stroke Maternal Grandmother October Arthritis Mother Asthma Mother Depression Mother Hypertension Mother Kidney disease Mother Abdominal Aortic Aneurysm Paternal Grandfather Grandpa Bartolome Hearing loss Paternal Grandfather Grandpa Bartolome Hyperlipidemia Paternal Grandfather Grandpa Bartolome Hypothyroidism Paternal Grandfather Grandpa Bartolome Atrial fibrillation Paternal Grandmother Grandma [place] Heart disease Paternal Grandmother Grandma Seema Hyperthyroidism Paternal Grandmother Grandma [place] Memory loss Paternal Grandmother Grandma Seema Breast cancer Neg Hx Colon cancer Neg Hx Ovarian cancer Neg Hx Relation Name Status Comments Father Osbaldo Alive Maternal Grandfather Grandpa Berghahn Alive Maternal Grandmother October Mother Alive Paternal Grandfather Grandpa Bartolome Alive Paternal Grandmother Grandma [place] Alive Social History Tobacco Use Types Packs/Day Years Used Date Smoking Tobacco: Never Smokeless Tobacco: Never Tobacco Cessation:Counseling Given: Not Answered Alcohol Use Standard Drinks/Week Comments Yes 2 (1 standard drink = 0.6 oz pur e alcohol) socially AUDIT-C Answer Date Recorded Q1: How often do you have a drink containing alc ohol? Monthly or less 11/06/2021 Q2: How many drinks containi ng alcohol do you have on a typical day when you are drinking? 1 or 2 11/06/2021 Q3: How often do you have si x or more drinks on one occasion? Never 11/06/2021 PHQ-2 Answer Date Recorded PHQ-2 Total Score (If total score is 3 or more points, staff should administer the PHQ-9) 0 12/23/2022 [facility] - Occupational Stress Questionnaire Answer Date Recorded Do you feel stress - tense, restless, nervous, or anxious, or unable to sleep at night because your mind is troubled all the time - these days? Not at all 11/06/2021 Exercise Vital Sign Answer Date Recorde d On average, how many days pe r week do you engage in moderate to strenuous exercise (like a brisk walk)? 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 Not on file Not on file Obstetrics History Last Filed Vital Signs Vital Sign Reading Time Taken Comments Blood Pressure 110/70 12/23/2022 3:49 PM CDT Pulse 68 12/23/2022 3:49 PM CDT Temperature 35.9 C (96.7 F) 12/23/2022 3:49 PM CDT Respiratory Rate 14 12/23/2022 3:49 PM CDT Oxygen Saturation 98% 12/23/2022 3:49 PM CDT Inhaled Oxygen Concentration - - Weight 68.9 kg (152 lb) 12/23/2022 3:49 PM CDT Height 165.1 cm (5' 5 ) 12/23/2022 3:49 PM CDT Body Mass Index 25.29 12/23/2022 3:49 PM CDT Plan of Treatment Health Maintenance Due Date Last Done Comments Hepatitis C Screening 1993 Cervical Cancer Screening 07/02/2018 07/02/2017 Pneumococcal vaccine <65 (2 of 2 - PCV) 07/03/2019 07/02/2018 Depression Screening 12/24/2023 12/23/2022, 11/06/2021, 10/28/2019, Additional history exists Regular Well Visit/Exam 18-64 12/24/2023, 11/06/2021, 10/28/2019, Additional history exists Covid-19 Vaccine (2023-2 5 season) 2024 05/14/2020, 05/14/2020, 04/24/2020, Additional history exists Influenza Vaccine (Season Ended) 2025 02/01/2018, 02/01/2017, 01/09/2017, Additional history exists DTaP/Tdap/Td Vaccine (10 - T d or Tdap) 06/22/2031 06/22/2021, 12/11/2018, 05/04/2014, Additional history exists Hepatitis B Screening Completed 1993 , 1993, 1993, Additional history exists Varicella Vaccines Completed 02/15/1998, 03/04/1996 HPV Vaccines Completed 08/14/2006, 08/02, 04/22/2006, Additional history exists Procedures Procedure Name Priority Date/Time Associated Diagnosis Comments PAP SMEAR Routine 07/02/2017 from Last 3 Months or Most Recently Relevant to Health Maintenance Results * PAP SMEAR (07/02/2017) Pap smear Abnormal us Historical Provider MD HEALTH MAINTENANCE Final Result from Last 3 Months or Most Recently Relevant to Health Maintenance Insurance [facility] [employer] Address: [address] [place] [address] [employer] [facility] Address: [facility] [id number] [place] [address] Care Teams X Ray Physician Relationship Specialty Start Date End Date Yrn Willingham MD [address] [place] [address] PCP - General Family Medicine 11/06/21 Jet Rivas MD [address] [place] [address] Consulting Physician Obstetrics and Gynecology 11/06/21
--- OUTSIDE RECORDS SUMMARY | 2024-08-02 17:41 | XMS_ITS | Clinical Summary ---
Author Organization [facility] Address [address] [place] [address] Care Team Providers Care Mold Shop Supervisor Name Role Phone Unavailable Primary Care Provider Unavailabl e Source Comments [facility],non-owned Affiliates and Associated Physician Practices is amultiple site organization consisting of ambulatory clinics and hospital sitesin [place], [place], [place] and [place]. This disclosure is being madepursuant to the Care Everywhere program and may not contain all information available regarding this patient. Last updated 18.[facility] Social History Tobacco Use Types Packs/Day Years Used Date Smoking Tobacco: Never Assessed Sex and Gender Information Value Date Recorded Sex Assigned at Not on file Gender Identity Not on file Sexual Orientation Not on file Plan of Treatment Health Maintenance Due Date Last Done Comments PAP SMEAR 1993 HIV SCREENING 01/17/2008 HEPATITIS C SCREENING 01/12/2011 DTAP/TDAP/TD VACCINES (1 - Tdap) 01/17/2012 HEPATITIS B VACCINE (1 of 3 - 19+ 3-dose series) 01/17/2012 COVID-19 VACCINE ( - 2023-2 5 season) 2024 INFLUENZA VACCINE (#1) 2024 DEPRESSION SCREENING 05/04/2024 ZOSTER VACCINE (1 of 2) 2043 HIB VACCINE Aged Out No longer eligi ble based on patient's age to complete this topic HPV VACCINE Aged Out No longer eligi ble based on patient's age to complete this topic MENINGOCOCCAL (Group B) VACC INE SHARED DECISION-MAKING Aged Out No longer eligibl e based on patient's age to complete this topic MENINGOCOCCAL GROUPS A/C/Y/W VACCINE Aged Out No longer eligible b ased on patient's age to complete this topic PNEUMOCOCCAL VACCINE Aged Out No long er eligible based on patient's age to complete this topic
--- OUTSIDE RECORDS SUMMARY | 2024-08-02 17:41 | XMS_ITS | Referral Summary ---
Author Organization [facility] Physician Office Building [address] [place] [id number] Care Team Providers Care Control And Recovery Special Tactics Name Role Phone Yrn Willingham MD Primary Care Provider [phone] Jet Rivas MD Unavailable [phone] Allergies No known active allergies Medications cetirizine [...] of Cervical cancer screening- she sees her solderer assembler. She is not up to date on [...] etc) Assessment & Plan (07/02/2018 11:12 AM BOTANICAL TECHNICAL OFFICER): Asthma is unchanged. The patient is experiencing [...] care. Assessment & Plan (07/02/2018 11:13 AM BOTANICAL TECHNICAL OFFICER): -Discussed recommendations for exercise at least 30 [...] was given a contact for gynecology in [facility]. Assessment & Plan (07/02/2018 11:11 AM BOTANICAL TECHNICAL OFFICER): Will repeat pap this July 2018 with Exit Booth Agent. Recommended keeping follow up. 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 on file Not on file Last Filed Vital Signs Vital Sign Reading [...] 12/23/2022 3:49 PM CDT Plan of Treatment Not on file Procedures Procedure Name Priority Date/Time Associated Diagnosis Comments PAP SMEAR Routine 07/02/2017 from Last 3 Months or Most Recently Relevant to Health Maintenance Results * PAP SMEAR (07/02/2017) Pap smear Abnormal Historical Provider HEALTH MAINTENANCE Final Result from Last 3 Months or Most Recently Relevant to Health Maintenance Insurance [facility] [employer] [employer] [facility] [employer] [id number] [place] [address] [facility] [employer] [facility] [employer] Address: [id number] [place] [address] Care Teams Control And Recovery Special Tactics Relationship Specialty Start Date End Date Yrn Willingham MD [address] [place], [place] [id number] PCP - General Family Medicine 11/06/21 Jet Rivas MD [address] [place] [address] Consulting Physician Obstetrics and Gynecology 11/06/21
--- OUTSIDE RECORDS SUMMARY | 2024-08-02 17:41 | XMS_ITS | Encounter Summary ---
Author Organization [facility] Address [address] [place] [address] Care Team Providers Care Assembly Supervisor Name Role Phone Unavailable Primary Care Provider Unavailabl e Encounter Details Date Type Department Care Team (Late st Contact Info) Description 02/12/2023 Lab Requisition [facility] - DermPath Lab [address] [facility], [place] [phone] Florentin Be Jr., MD [address] [place] [address] Social History Tobacco Use Types Packs/Day Years Used Date Smoking Tobacco: Never Assessed Sex and Gender Information Value Date Recorded Sex Assigned at Not on file Gender Identity Not on file Sexual Orientation Not on file documented as of this encounter Plan of Treatment Not on file documented as of this encounter Procedures Procedure Name Priority Date/Time Associated Diagnosis Comments DERMATOPATHOLOGY Routine 02/12/2023 3:33 AM CDT documented in this encounter Results * DERMATOPATHOLOGY (02/12/2023 3:33 AM CDT) Case Report Dermatopathology Report Case: [id number] Authorizing Provider: Florentin Be Jr., MD Collected: 02/12/2023 03:33 AM Ordering Location: [facility] DermPath Lab Received: 02/12/2023 01:17 PM Pathologist: Felicita Lauren MD Specimen: Skin, left mid upper back 12:49 PM CDT DERMATOPATHOLOGY LABORATORY Final Diagnosis Specimen A. SKIN, left mid upper back: EPIDERMOID CYST WITH EVIDENCE OF RUPTURE (L72.0) 12:49 PM CDT DERMATOPATHOLOGY LABORATORY Clinical History CYST. 12:49 PM CDT DERMATOPATHOLOGY LABORATORY Gross Description Specimen A: Received is one formalin filled container labeled with the patient's name and designated left mid upper back. The specimen consists of a piece of skin measuring 10k2i38 mm. The specimen is bisected lengthwise and submitted in 1 cassette. Jar 0. 12:49 PM CDT DERMATOPATHOLOGY LABORATORY Microscopic Description Specimen A. SKIN, left mid upper back: Within the dermis, there is a space lined by epithelium that resembles normal epidermis and the infundibular portion of the hair follicle. Surrounding this is an infiltrate with neutrophils, histiocytes, and multinucleated giant cells. 12:49 PM CDT DERMATOPATHOLOGY LABORATORY Disclaimer An external and internal positive and negative controls are appropriate for the histochemical, immunohistochemical and immunofluorescence stain(s) in this case (if any), except where stated explicitly. The performance characteristics of the stain(s) cited in this report were developed and its performance characteristic determined by the Dermatopathology Laboratory at [facility], directed by Dr. Eric Silver. These tests need not be, and therefore are not, approved by the [place] Food and Drug Administration. The tests are used for clinical purposes. Billing Codes Specimen Charges Stain Charges 17613 1 12:49 PM CDT DERMATOPATHOLOGY LABORATORY Embedded Images 12:49 PM CDT DERMATOPATHOLOGY LABORATORY Pathology/Cytolo gy TISSUE SPECIMEN FROM SKIN / Unknown 02/12/2023 3:33 AM CDT 02/12/2023 1:17 PM CDT Florentin Be Jr., MD LAB - PATHOLOGY /CYTOLOGY ORDERABLES DERMATOPATHOLOGY LABORATORY [facility] - Department of Dermatology [address], [address] [phone] documented in this encounter Visit Diagnoses Not on filedocumented in this encounter
== END 2024-08-02 17:16 | disposition home or self-care (01) ==
LOC: ANHIMG 17:18
PROVIDERS: PCP Family Medicine; Visit Provider Obstetrics & Gynecology
DX: T83.32XA Displacement of intrauterine contraceptive device, initial encounter (principal)
CPT/HCPCS: 74021

== ENCOUNTER 2024-08-05 00:16 | Day surgery (SDC) | payer BC, SELFPAY ==
--- NOTE | 2024-08-03 15:27 | P.HP_ITS ---
H&P: HPI History of Present Illness Date/Time: 08/03/24 15:27 Chief Complaint: Ectopic IUD Narrative: Pre 1-year-old female with the IUD in the left adnexal area. She will undergo laparoscopic removal risks and benefits reviewed Review of Systems Review of Systems: All systems reviewed & are unremarkable except as noted in HPI and below PMFSH Family History Family History Mother Migraines Hypertension Father Atrial fibrillation Hypothyroidism Grandparent Acute myocardial infarction Grandparent Aneurysm Social History Social History Smoking status: Never smoker Second hand tobacco smoke exposure: No Substance use: never Do You Feel Safe in your Home?: Yes Lack of Transportation: No Lack of Food: Never True Current Housing: I Have Housing Concerned About Future Housing: No Difficulty Paying Gas/Electric Bills: No Difficulty Paying for Meds: No Currently Unemployed: No Education: Master's Degree or Higher Difficulty w/ Childcare or Family Care: No Spiritual care concerns: No Meds Home Medications and Allergies Home Medications ?Medication ?Instructions ?Recorded ?Confirmed ?Type albuterol (refill) 90 90 mcg inhalation Q6H PRN Adequate 07/26/21 02/05/24 History mcg/actuation aerosol inhaler Ventilation vit no.95-ferrous 1 tablet PO DAILY 07/26/21 02/05/24 History fumarate 28 mg-folic acid 800 mcg tablet () Allergies Allergy/AdvReac Type Severity Reaction Status Date / Time No Known Allergies Allergy Verified 02/05/24 14:40 Exam Const: General: cooperative, healthy appearing and comfortable Nutritional Appearance: average body habitus Orientation/consciousness: oriented to person, oriented to place and oriented to time HENMT: Head: normal to inspection Resp: Effort & Inspection: normal respiratory effort Cardio: Rate: regular rate Rhythm: regular rhythm Heart sounds: S1 normal heart sound present and S2 normal heart sound present GI: Inspection: normal to inspection Auscultation: normal bowel sounds : External Female Exam: normal external appearance Speculum Exam - Vagi na: normal appearance of the vagina Speculum Exam - Cervix: normal appearance of the cervix Bimanual exam- vagina & uterus: soft Bimanual Exam- Adnexa, other: normal adnexae Assessment and Plan Assessment and plan (1) IUD strings lost: Code(s): T83.32XA - Displacement of intrauterine contraceptive device, initial encounter Status: Acute Plan Laparoscopic removal of intra-abdominal IUD
[2024-08-04 08:52] VITALS: BMI 22.7
--- NOTE | 2024-08-04 08:59 | PC.NURSE ---
Report to the Outpatient Waiting Room, entrance under the green pavilion located off [facility], at time _0900__ on date _08/05/24__. Planned Procedure Time: 1100.? Time changes happen often and if your time is changed the preop area will call you the afternoon before. - You and your visitor will be asked to self-screen and do not enter if you have any COVID symptoms. Please call surgeon if you need to reschedule. - A mask is optional within the hospital at this time. Patients may have clear liquids (water, carbonated beverages, clear teas, apple juice) until 3 hours prior to surgery with a maximum of 20 ounces. - No food from midnight until time of surgery and no smoking, or chewing tobacco (or any form of nicotine). No chewing gum, candy or mints. - Infants may have breast milk until 4 hours before surgery, infant formula 6 hours prior to surgery. - Children will be allowed to drink immediately following surgery.? If applicable, please bring a bottle or sippy cup to assist with drinking. Juice, water, soda, and popsicles are readily available.? For infants on formula, please bring formula the day of surgery.? Pacifiers are allowed. Take only the following medications with a SIP of water on the morning of surgery: ___INHALER IF NEEDED DO NOT STOP ANY OF YOUR OTHER PRESCRIPTION MEDICATIONS PRIOR TO SURGERY EXCEPT THE FOLLOWING Hold all vitamins and supplements for 3 days per anesthesiologist. Medications to discontinue per physician NONE Date to take last dose Please no make-up, nail south su[place]ese, hairspray, perfume, deodorant, or body powder the day of surgery.? No jewelry (including any body piercings) or valuables the day of surgery, leave them at home.? Please take a shower or bath the night before, or the morning of, surgery with an antibacterial soap.? Wear comfortable, loose fitting clothing.? Children are encouraged to wear pajamas. - Jewelry must be removed prior to entering the operating room.? Rings and piercings that are not removed may be cut off. - The hospital will not accept responsibility for valuables.? - Please leave all valuables, including medications, at home the day of surgery. If you are going home after surgery, a licensed laundry route driver must drive you home.? - NO public transportation without another adult if you receive anesthesia. - We recommend that an adult stay with you for 24 hours following discharge. - We also recommend that you do not drive, make important decision, drink alcoholic beverages, or take any drugs that were not prescribed by your health care provider for at least 24 hours after your discharge time. For Pediatric surgeries, we recommend two adults accompany the child home. Follow any additional instructions given to you from your surgeon. Telephone instructions given to __PATIENT_and asked if any additional questions and then verbalized understanding. Patient advised to call surgeon office or pre surgery nurse liaison [phone] if any additional questions.
[2024-08-05] VITALS (9 sets, daily range): BP systolic 94–117; BP diastolic 56–76; PULSE 57–90; RESP 12–20; TEMP 36.5–37.1; O2SAT 98–100
--- OUTSIDE RECORDS SUMMARY | 2024-08-05 00:20 | XMS_ITS | Clinical Summary ---
Author Organization [facility] Address [address] [facility] [place] [address] Care Team Providers Care Machinery Mechanic Name Role Phone Unavailable Primary Care Provider Unavailabl e Source Comments [facility] Attivio,non-owned Affiliates and Associated Physician Practices is amultiple site organization consisting of ambulatory clinics and hospital sitesin [place], [place], [place] and [place]. This disclosure is being madepursuant to the Care Everywhere program and may not contain all information available regarding this patient. Last updated 18.[facility] Attivio Social History Tobacco Use Types Packs/Day Years [...] - 19+ 3-dose series) 01/17/2012 COVID-19 VACCINE (2023-2 5 season) 2024 INFLUENZA VACCINE (#1) 2024 [...]
--- OUTSIDE RECORDS SUMMARY | 2024-08-05 00:20 | XMS_ITS | Encounter Summary ---
Author Organization [facility] Address [address] [place] [address] Care Team Providers Care System Planning Engineer Name Role Phone Yrn Willingham MD Primary Care Provider [phone] Jet Rivas MD Unavailable [phone] Reason for Referral * Diagnostic Imaging (Routine) - Closed Specialty Diagnoses / Procedures Referred By Hanane goldstein Referred To Contact Procedures XR Abdomen 2 Views W Chest 1 View Mari Araujo MD [address] [place] [address] Phone: tel: Referral ID Status Reason Start Date Expiration Date Visits Re quested Visits Authorized [id number] Closed 08/03/2024 09/02/2025 1 1 Encounter Details Date Type Department Care Team (Late st Contact Info) Description 08/03/2024 Orders Only [facility] Primary Care at [address] [address] Mari Araujo MD [address] [place] [address] Social History Tobacco Use Types Packs/Day Years Used Date Smoking Tobacco: Never Smokeless Tobacco: Never Alcohol Use Standard Drinks/Week Comments Yes 2 [...] staff should administer the PHQ-9) 0 12/23/2022 [facility] of Occupat ional Health - Occupational Stress [...] on file Legal Sex Female 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 Gender Identity Not on file Sexual Orientation Not on file 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 Not on file Not on file documented as of this encounter Plan of Treatment Not on file documented as of this encounter Procedures Procedure Name Priority Date/Time Associated Diagnosis Comments XR ABDOMEN 2 VIEWS W CHEST 1 VIEW Schedule Routine, Read Routine (OP Routine) 08/02/2024 1:04 PM CDT documented in this encounter Results * XR Abdomen 2 Views W Chest 1 View (08/02/2024 1:04 PM CDT) Anatomical Region Laterality Modality Body, Abdomen N/A Radiographic Iqar ging us Historical Provider MD GARCIA XR PROCEDURES Final R esult documented in this encounter Visit Diagnoses Not on filedocumented in this encounter Care Teams System Planning Engineer Relationship Specialty Start Date End Date Yrn Willingham MD [address] [place] [address] PCP - General Family Medicine 11/06/21 Jet Rivas MD [address] [place] [address] Consulting Physician Obstetrics and Gynecology 11/06/21 documented as of this encounter
--- OUTSIDE RECORDS SUMMARY | 2024-08-05 00:20 | XMS_ITS | Clinical Summary ---
Author Organization [facility] Building [address] [place] [phone] Care Team Providers Care Studio Set Up Worker Name Role Phone Yrn Willingham MD Primary Care Provider [phone] Jet Rivas MD Unavailable [phone] Allergies No known active allergies Medications cetirizine [...] of Cervical cancer screening- she sees her clinical science liaison. She is not up to date on [...] etc) Assessment & Plan (07/02/2018 11:12 AM SPORTS MEDICINE PHYSICIAN): Asthma is unchanged. The patient is experiencing [...] care. Assessment & Plan (07/02/2018 11:13 AM SPORTS MEDICINE PHYSICIAN): -Discussed recommendations for exercise at least 30 [...] was given a contact for gynecology in [facility]. Assessment & Plan (07/02/2018 11:11 AM SPORTS MEDICINE PHYSICIAN): Will repeat pap this July 2018 with Choker Hooker. Recommended keeping follow up. Resolved Problems Problem Noted Date Diagnosed Date Resolved Date Cough 07/25/2019 10/28/2019 SOB (shortness of breath) 07/25/2019 Advice given about COVID-19 virus infection 07/25/2019 10/28/2019 Encounters Date Type Department Care Team Description 08/03/2024 Orders Only [facility] Primary Care at [address] [address] Provider, MD Mari from Last 3 Months Immunizations Immunization Administration Dates Next Due DTaP [...] Maternal Grandfather Grandpa Berghahn Aneurysm Maternal Grandmother October Stroke Maternal Grandmother Pepper Arthritis Mother Asthma Mother Depression Mother Hypertension Mother Kidney disease Mother Abdominal Aortic Aneurysm Paternal Grandfather Grandpa Bartolome Hearing loss Paternal Grandfather Grandpa Bartol[place] Hyperlipidemia Paternal Grandfather Grandpa Bartolome Hypothyroidism Paternal Grandfather Grandpa Bartolome Atrial fibrillation Paternal Grandmother Grandma Seema Heart disease Paternal Grandmother Grandma Grainger Hyperthyroidism Paternal Grandmother Grandma Seema Memory loss Paternal Grandmother Grandma Seema Breast cancer Neg Hx Colon cancer Neg Hx Ovarian cancer Neg Hx Relation Name Status Comments Father Osbaldo Alive Maternal Grandfather Grandpa Berghahn Alive Maternal Grandmother Pepper Mother Alive Paternal Grandfather Grandpa Bartolome Alive Paternal Grandmother Grandma [place] Alive Social History Tobacco Use Types Packs/Day [...] staff should administer the PHQ-9) 0 12/23/2022 [facility] of Occupat ional Health - Occupational Stress [...] on file Legal Sex Female 9:19 AM SPORTS MEDICINE PHYSICIAN Gender Identity Not on file Sexual Orientation [...] Routine (OP Routine) 08/02/2024 1:04 PM CDT PAP SMEAR Routine 07/02/2017 from Last 3 Months or Most Recently Relevant to Health Maintenance Results * XR Abdomen 2 Views W Chest 1 View (08/02/2024 1:04 PM CDT) Anatomical Region Laterality Modality Body, Abdomen N/A Radiographic Iqra ging Historical Provider IMG XR PROCEDURES Final R esult * HM PAP SMEAR (07/02/2017) Pap smear Abnormal Historical Provider HEALTH MAINTENANCE Final Result from Last 3 Months or Most Recently Relevant to Health Maintenance Insurance [facility] [employer] Address: [facility] [address] [place] [address] [employer] Address: [facility] [address] [place] [address] Care Teams Studio Set Up Worker Relationship Specialty Start Date End Date Yrn Willingham MD [address] [place] [address] PCP - General Family Medicine 11/06/21 Jet Rivas MD [address] [place] [address] Consulting Physician Obstetrics and Gynecology 11/06/21
--- OUTSIDE RECORDS SUMMARY | 2024-08-05 00:20 | XMS_ITS | Referral Summary ---
Author Organization [facility] [address] [place] [phone] Care Team Providers Care Chef Head Name Role Phone Yrn Willingham MD Primary Care Provider [phone] Jet Rivas MD Unavailable [phone] Encounters Date Type Department Care Team Description 08/03/2024 Orders Only [facility] Primary Care at [address] [address] Provider, MD Mari from Last 3 Months Allergies No known active allergies Medications cetirizine [...] of Cervical cancer screening- she sees her organic preparation analyst. She is not up to date on [...] etc) Assessment & Plan (07/02/2018 11:12 AM CALENDER ROLL PRESS OPERATOR): Asthma is unchanged. The patient is experiencing [...] -Cancer screening: cervical cancer screening- last pap 2018, due 2019; monthly self breast exam encouaged. -Immunizations: yearly influenza vaccines -Continue routine dental and vision care. Assessment & Plan (07/02/2018 11:13 AM CALENDER ROLL PRESS OPERATOR): -Discussed recommendations for exercise at least 30 [...] was given a contact for gynecology in [facility]. Assessment & Plan (07/02/2018 11:11 AM CALENDER ROLL PRESS OPERATOR): Will repeat pap this July 2018 with Patient Services Technician. Recommended keeping follow up. 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
--- OUTSIDE RECORDS SUMMARY | 2024-08-05 00:20 | XMS_ITS | Encounter Summary ---
Author Organization [facility] Address [address] [place] [address] Care Team Providers Care Molder Bench Name Role Phone Unavailable Primary Care Provider Unavailabl e Encounter Details Date Type Department Care Team (Late st Contact Info) Description 02/12/2023 Lab Requisition [facility] - DermPath Lab [address] [facility] [place] [phone] Florentin Be Jr., MD [address] [facility] [address] [place] [address] Social History Tobacco Use Types Packs/Day Years [...] AM CDT) Case Report Dermatopathology Report Case: [id number] Authorizing Provider: Florentin Be Jr., MD Collected: 02/12/2023 03:33 AM Ordering Location: [facility] DermPath Lab Received: 02/12/2023 01:17 PM Pathologist: [...] consists of a piece of skin measuring 23d6m06 mm. The specimen is bisected lengthwise and [...] characteristic determined by the Dermatopathology Laboratory at [facility], directed by Dr. Eric Silver. These tests need not be, and therefore are not, approved by the [place] Food and Drug Administration. The tests are used for clinical purposes. Billing Codes Specimen Charges Stain Charges 98076 1 12:49 PM CDT DERMATOPATHOLOGY LABORATORY Embedded Images 12:49 PM CDT DERMATOPATHOLOGY LABORATORY Pathology/Cytolo gy TISSUE SPECIMEN FROM SKIN / Unknown 02/12/2023 3:33 AM CDT 02/12/2023 1:17 PM CDT Florentin Be Jr., MD LAB - PATHOLOGY /CYTOLOGY ORDERABLES DERMATOPATHOLOGY LABORATORY [facility] - Department of Dermatology [address] [phone] documented in this encounter Visit Diagnoses Not on filedocumented in this encounter
--- NOTE | 2024-08-05 06:37 | WPDHPUPDATE1 ---
History and Physical Update Update Date/Time: 08/05/24 06:37 History and Physical has been reviewed, including an updated exam of the patient. There are NO changes in the patient's condition. Risks, benefits, and alternatives have been discussed and questions answered. Patient agrees to proceed with procedure.
[2024-08-05] MEDS: KETOROLAC 15 MG/ML VIAL (*BKC) IV PUSH (10:09)
[2024-08-05] MEDS: LACTATED RINGERS 1,000 ML 30 ML IV CONT (10:09)
[2024-08-05] MEDS: ACETAMINOPHEN 500 MG TABLET 1000 MG PO (10:09)
--- NOTE | 2024-08-05 10:36 | P.PNAN_ITS ---
Anes - Initial Pre Proc Eval Procedure: Operation Date: 08/05/24 11:00 Proposed Procedures p Laparoscopy with Removal of Displaced Intrauterine Device - Yoel Canales MD Date/Time: 08/05/24 10:36 Surgeon: Yoel Canales MD Pre Op Diagnosis: Displaced IUD Patient Data Age: 29 Gender: F Height: 1.65 m Weight: 61.1 kg Last Vital Signs Temp 98.7 F 08/05/24 10:12 Pulse 90 08/05/24 10:12 Resp 18 08/05/24 10:12 BP 117/76 08/05/24 10:12 Pulse Ox 100 08/05/24 10:12 O2 Del Method Room Air 08/05/24 10:12 Allergies Allergy/AdvReac Type Severity Reaction Status Date / Time No Known Allergies Allergy Verified 08/05/24 10:10 Home Medications ?Medication ?Instructions ?Recorded ?Confirmed ?Type albuterol (refill) 90 90 mcg inhalation Q6H PRN Adequate 07/26/21 08/04/24 History mcg/actuation aerosol inhaler Ventilation vit no.95-ferrous 1 tablet PO DAILY 07/26/21 08/04/24 History fumarate 28 mg-folic acid 800 mcg tablet () hydrocodone 5 mg-acetaminophen 325 1 tablet PO Q4H PRN pain #20 tabs 08/05/24 Rx mg tablet Patient hx anesthesia problems: none Family hx anesthesia problems: none Results Review: All pre-operative results and documents have been reviewed as part of the pre- operative evaluation. [facility] Family History Family History Mother Migraines Hypertension Father Atrial fibrillation Hypothyroidism Grandparent Acute myocardial infarction Grandparent Aneurysm Social History Social History Smoking status: Never smoker Second hand tobacco smoke exposure: No Alcohol intake: current Drinks per week: 1 Substance use: never Do You Feel Safe in your Home?: Yes Lack of Transportation: No Lack of Food: Never True Current Housing: I Have Housing Concerned About Future Housing: No Difficulty Paying Gas/Electric Bills: No Difficulty Paying for Meds: No Currently Unemployed: No Education: Master's Degree or Higher Difficulty w/ Childcare or Family Care: No Living arrangements: with family Spiritual care concerns: No Anes - Eval Final PreProcedure Day of Procedure 08/05/24 10:36 Patient weight: normal Lungs: normal air movement Airway: Mallampati scale class II Neurological: alert and oriented Last oral intake: >/= 8 hours ASA classification: I Emergent: no Anesthetic plan: proceed Anesthesia type and monitoring: general ETT and standard monitoring Results Review: All pre-operative results and documents have been reviewed as part of the pre- operative evaluation. Pt in excellent health. Breast feeding after anesthesia discussion w pt her at bedside. Informed Consent: The patient's anesthetic plan and its attendant risks and benefits were discussed with the patient/family/POA. Questions were solicited and answers provided to the satisfaction of the patient/family/POA.
--- NOTE | 2024-08-05 11:09 | P.OP_ITS ---
Procedure Note - Detailed Date of Procedure 08/05/24 Pre-op Diagnosis Displaced IUD Post-op Diagnosis Other (Displaced IUD and endometriosis) Procedure Performed Laparoscopic removal of ectopic IUD and destruction of endometriosis Surgeon Yoel Canales MD Anesthesia General Indications 29-year-old female with a lost IUD suspected to be left fallopian tube Findings Normal-appearing uterus ovaries and tubes the IUD was hanging out of the left fallopian tube. Areas of powder burn and blistered endometriosis along each uterosacral ligament. Approximately 15cc of serosanguineous fluid. Normal- appearing appendix gallbladder liver edge Description of Procedure Patient was prepped draped in normal sterile fashion placed in the dorsal lithotomy position. Under excellent general trach anesthesia weighted speculum placed in posterior fornix vagina. Anterior lip of the cervix grasped with a single-tooth tenaculum. Jackman's cannula inserted the cervix and attached to the single-tooth to be used later for uterine manipulation. After emptying the bladder clear urine, the weighted speculum was removed the gloves were changed. An infraumbilical incision made the Veress needle passed in the abdomen. Abdomen was then filled with CO2 gas [id number]. The 5mm trocar was advanced under direct visualization with the Optiview and no injury seen. Patient placed in Trendelenburg and a suprapubic incision made. The 5mm trocar advanced under direct visualization assuring no injury. The IUD was seen extruding from the left fallopian tube and this was removed without difficulty through the lower incision. Areas of endometriosis were seen and these were cauterized at 35 w per 2nd. Photo documentation of the uterus ovaries tubes appendix and liver and gallbladder were all undertaken. Irrigation undertaken to clear the instruments were then withdrawn. The gas removed from the abdomen and the trocars removed. The incisions closed with 4-0 Monocryl and glue. Patient was awakened went recovery in satisfactory condition. All sponge, needle, instrument counts were correct. There were no immediate complications Estimated Blood Loss 5 Drains No Packing No Pathology None sent Complications No immediate complications Condition Stable Disposition PACU
== END 2024-08-05 13:20 | disposition home or self-care (01) ==
PROVIDERS: PCP Family Medicine; Visit Provider Obstetrics & Gynecology
PROC: (CPT 49320; principal; 2024-08-05 11:00)
DX: T83.32XA Displacement of intrauterine contraceptive device, initial encounter (principal); N80.3C3 Endometriosis of bilateral uterosacral ligament(s), unspecified depth; Y83.8 Other surgical procedures as the cause of abnormal reaction of the patient, or of later complication, without mention of misadventure at the time of the procedure; Z79.51 Long term (current) use of inhaled steroids; Z79.891 Long term (current) use of opiate analgesic; Z82.49 Family history of ischemic heart disease and other diseases of the circulatory system
CPT/HCPCS: 58662; 49402; 36415; A9270; J1885; J2250; J3010; J7120